=== PATIENT | female | born 1995 | race African-American/Black ===

== ENCOUNTER 2016-12-15 12:34 | Emergency (ER) | payer OTHER ==
[~2016-12-15 12:34] MED LIST: AMOXIL500 M1 PO; BACTRIM DS TABL1 TA1 PO; LORTAB 10-5001 EACH PO; MAGIC MOUTH WASH PO; PREDNISONE10 MG PO
== END 2016-12-15 12:39 | disposition home or self-care (01) ==
LOC: CFTX 12:34
DX: J02.0 Streptococcal pharyngitis (principal); I10 Essential (primary) hypertension; F17.210 Nicotine dependence, cigarettes, uncomplicated
CPT/HCPCS: 87880; 96372; 99283; J0561